=== PATIENT | male | born 2000 | race Caucasian/White ===

== ENCOUNTER 2018-05-22 03:09 | Emergency (ER) | payer BC ==
[2018-05-22] MEDS ORDERED: ONDANSETRON DISINTEGRATING 4 MG TAB PO ONE (03:22)
--- NOTE | 2018-05-22 03:24 | EDPHY ---
H & P Stated Complaint: etoh nv Time Seen by Provider: 05/22/18 03:17 HPI/ROS: Chief Complaint: Alcohol intoxication, vomiting HPI: 17-year-old male dropped off by friends after he began vomiting. Patient has been drinking alcohol this morning. Denies any other ingestions. Is not able to tell me how much alcohol he had to drink. No fevers or chills. Denies any fall or head injury. No medications. No allergies. ROS: 10 systems were reviewed and were negative except those elements noted in the HPI. PMH: Denies Social History: No smoking, occasional alcohol, no recreational drug use Family History: non-contributory Physical Exam: Gen: Awake, somnolent, smells of alcohol and emesis, arousable, maintaining airway HEENT: Nose: no rhinorrhea Eyes: PERRLA, EOMI Mouth: Moist mucosa Neck: Supple, no JVD Chest: nontender, lungs clear to auscultation Heart: S1, S2 normal, no murmur Abd: Soft, non-tender, no guarding Back: no CVA tenderness, no midline tenderness Ext: no edema, non-tender Skin: no rash Neuro: CN II-XII intact, Sensation grossly intact, Strength 5/5 in bilateral upper and lower extremities - Personal History Current Tetanus/Diphtheria Vaccine: No Current Tetanus Diphtheria and Acellular Pertussis (TDAP): No - Medical/Surgical History Hx Asthma: No Hx Chronic Respiratory Disease: No Hx Diabetes: No Hx Cardiac Disease: No Hx Renal Disease: No Hx Cirrhosis: No Hx Alcoholism: No Hx HIV/AIDS: No Hx Splenectomy or Spleen Trauma: No - Social History Smoking Status: Never smoked Constitutional: Initial Vital Signs Temperature (C) 36.7 C 05/22/18 03:16 Heart Rate 82 05/22/18 03:16 Respiratory Rate 16 05/22/18 03:16 Blood Pressure 121/64 H 05/22/18 03:16 O2 Sat (%) 94 05/22/18 03:16 O2 Delivery Mode Room Air Allergies/Adverse Reactions: No Known Allergies Allergy (Unverified 05/22/18 03:16) Home Medications: Medication Instructions Recorded NK [No Known Home Meds] 05/22/18 Medical Decision Making ED Course/Re-evaluation: Patient is now awake and appropriate. Ambulating unassisted to the bathroom. No current complaints. Patient is tolerating oral fluids. Patient is ready for discharge with sober ride. - Data Points Medications Given: Discontinued Medications Ondansetron HCl (Zofran Odt) 4 mg PO EDNOW ONE Stop: 05/22/18 03:23 Last Admin: 05/22/18 03:30 Dose: 4 mg Departure - Departure Disposition: Home, Routine, Self-Care Clinical Impression: Alcoholic intoxication Condition: Good Instructions: Alcohol Intoxication (ED) Referrals: NONE *PRIMARY CARE P,. [Primary Care Provider] - As per Instructions
[2018-05-22 05:06] VITALS: BP 137/60
== END 2018-05-22 07:06 | disposition home or self-care (01) ==
DX: F10.920 Alcohol use, unspecified with intoxication, uncomplicated (principal)